=== PATIENT | female | born 1980 | race Caucasian/White ===

== ENCOUNTER 2020-05-10 09:45 | Outpatient (CLI) | payer BC ==
[2020-05-10 12:22] LABS: #Eosinphils 0.1 10x3/uL (0.0-0.5); #Monocytes 0.6 10x3/uL (0.0-1.1); #Neutrophils 3.3 10x3/uL (1.5-8.4); %Basophils 0.7 % (0.0-2.0); %Lymphocytes 31.6 % (18.0-47.0); %Monocytes 9.8 % (0.0-10.0); %Neutrophils 55.6 % (40.0-75.0); Bilirubin Neg (Negative); Blood, Urine 250 (Negative); Clarity Cloudy (Clear); Glucose, Urine (Dipstick) Normal (Negative); Hemoglobin 14.5 g/dL (12.0-15.5); Ketone, Urine Negative (Negative); Leukocyte 25 (Negative); Mean Corpuscular HGB CONC 33.3 g/dL (32.0-36.0); Mean Corpuscular Hemoglobin 30.8 pg (27.0-33.0); Mean Corpuscular Volume 92.6 fl (81.6-98.3); Mean Platelet Volume 11.6 fl (7.4-10.4); Nitrite Negative (Negative); Platelet Count 223 10x3/uL (150-450); Protein, Urine (Dipstick) 30 mg/dl (Neg-Trace); RBC Distribution Width 11.9 % (11.5-14.5); Red Blood Cell (RBC) Count 4.71 10x6/uL (3.90-5.03); Specific Gravity, Urine 1.015 (1.002-1.036); Urobilinogen Normal mg/dL (Less than 2); White Blood Cell (WBC) Count 5.9 10x3/uL (3.5-10.5)
[2020-05-10 13:15] LABS: RBC/HPF Greater than 50 HPF (0-3); Squamous Epithelial 0-3 HPF (0-3)
[2020-05-10 13:16] LABS: Bacteria/HPF Rare-Few HPF (None Seen)
[2020-05-10 20:03] LABS: SARS-CoV-2 PCR by NAA Not Detected (NotDetected)
== END 2020-05-10 09:46 | disposition home or self-care (01) ==
LOC: CSHLAB 09:45
PROVIDERS: ATTEND Obstetrics & Gynecology
DX: Z01.812 Encounter for preprocedural laboratory examination (principal); Z20.822 Contact with and (suspected) exposure to COVID-19; N93.9 Abnormal uterine and vaginal bleeding, unspecified; N92.0 Excessive and frequent menstruation with regular cycle; D64.9 Anemia, unspecified
CPT/HCPCS: 81001; 84702; 85025; 87635; U0003; U0005

== ENCOUNTER 2020-05-19 19:38 | Inpatient (IN) | payer BC ==
[2020-05-19] MEDS ORDERED: diphenhydrAMINE 25 MG CAP PO PRN (20:48)
[2020-05-19] MEDS ORDERED: HYDROcodone/Acetaminophen 5/325 mg Tablet PO PRN (20:52)
[2020-05-19] MEDS ORDERED: Morphine 4 MG/ML VIAL SLOW IVP SCH (21:00)
[2020-05-19] MEDS ORDERED: Piperacillin/Tazobactam 4.5 GM in Sodium Chloride 0.9% 100 ML IVPB SCH (21:15)
[2020-05-19] MEDS ORDERED: Ketorolac Tromethamine 30 MG/ML VIAL IVP SCH ×2 (21:15→23:59)
[2020-05-19] MEDS ORDERED: Ondansetron PF 4 MG/2 ML Vial IVP SCH (21:15)
[2020-05-19] MEDS ORDERED: Piperacillin/Tazobactam 4.5 GM VIAL ONE (21:46)
[2020-05-19] MEDS: Sodium Chloride 0.9% 1,000 ML IV SCH (21:55)
[2020-05-19] MEDS ORDERED: metroNIDAZOLE 0.75% 70 GM TUBE VAG SCH (22:45)
[2020-05-19] MEDS: Zolpidem Tartrate 5 MG TAB PO PRN (23:37)
[2020-05-19] MEDS ORDERED: Piperacillin/Tazobactam 3.375 GM in Sodium Chloride 0.9% 100 ML IVPB SCH (23:59)
[2020-05-20] MEDS ORDERED: Piperacillin/Tazobactam 3.375 GM in Sodium Chloride 0.9% 100 ML IVPB SCH (01:00)
[2020-05-20] MEDS ORDERED: Piperacillin/Tazobactam 4.5 GM VIAL ONE (01:30)
[2020-05-20 02:31] VITALS: BMI 36.6
[2020-05-20] MEDS: Ketorolac Tromethamine 30 MG/ML VIAL IVP SCH ×4 (03:11→22:16)
[2020-05-20] MEDS: Ondansetron PF 4 MG/2 ML Vial IVP PRN ×4 (03:12→17:35)
[2020-05-20] MEDS: HYDROcodone/Acetaminophen 5/325 mg Tablet PO PRN ×2 (04:10→14:47)
[2020-05-20] MEDS: Sodium Chloride 0.9% 1,000 ML IV SCH ×3 (05:31→22:17)
[2020-05-20 06:24] LABS: Hemoglobin 11.6 g/dL (12.0-15.5); Mean Corpuscular HGB CONC 33.8 g/dL (32.0-36.0); Mean Corpuscular Hemoglobin 30.9 pg (27.0-33.0); Mean Corpuscular Volume 91.2 fl (81.6-98.3); Platelet Count 177 10x3/uL (150-450); RBC Distribution Width 12.2 % (11.5-14.5); Red Blood Cell (RBC) Count 3.76 10x6/uL (3.90-5.03); White Blood Cell (WBC) Count 9.8 10x3/uL (3.5-10.5)
[2020-05-20] MEDS: Piperacillin/Tazobactam 3.375 GM in Sodium Chloride 0.9% 100 ML IVPB SCH ×2 (09:08→17:34)
[2020-05-20] MEDS: metroNIDAZOLE 0.75% 70 GM TUBE VAG SCH (09:08)
[2020-05-20] MEDS ORDERED: Mineral Oil ENEMA PR SCH (21:00)
[2020-05-20] MEDS: Promethazine HCl 25 MG/ML VIAL IM PRN (21:21)
[2020-05-21] MEDS: Piperacillin/Tazobactam 3.375 GM in Sodium Chloride 0.9% 100 ML IVPB SCH ×3 (00:36→16:55)
[2020-05-21] MEDS: Sodium Chloride 0.9% 1,000 ML IV SCH ×3 (00:37→17:00)
[2020-05-21] MEDS: Ibuprofen 600 MG TAB PO PRN ×2 (03:20→17:31)
[2020-05-21] MEDS: metroNIDAZOLE 0.75% 70 GM TUBE VAG SCH (08:33)
[2020-05-21] MEDS: Polyethylene Glycol 3350 17 GM Packet PO SCH (08:33)
[2020-05-21] MEDS ORDERED: Acetaminophen 325 MG TAB PO PRN (17:45)
[2020-05-22] MEDS: Piperacillin/Tazobactam 3.375 GM in Sodium Chloride 0.9% 100 ML IVPB SCH ×3 (02:25→17:15)
[2020-05-22] MEDS: Sodium Chloride 0.9% 1,000 ML IV SCH ×3 (02:32→22:06)
[2020-05-22] MEDS: Zolpidem Tartrate 5 MG TAB PO PRN ×2 (02:45→21:56)
[2020-05-22] MEDS: Promethazine HCl 25 MG/ML VIAL IM PRN (07:55)
[2020-05-22] MEDS: Polyethylene Glycol 3350 17 GM Packet PO SCH (09:19)
[2020-05-22] MEDS ORDERED: Promethazine 25 MG TAB PO PRN (13:18)
[2020-05-22] MEDS ORDERED: Ondansetron ODT 4 MG TAB PO PRN (13:19)
[2020-05-22] MEDS: Metoclopramide HCl 10 MG TAB PO SCH ×2 (16:52→20:56)
[2020-05-22] MEDS: metroNIDAZOLE 0.75% 70 GM TUBE VAG SCH (20:07)
[2020-05-22] MEDS ORDERED: metroNIDAZOLE 0.75% 70 GM TUBE VAG SCH (21:00)
[2020-05-23] MEDS: Piperacillin/Tazobactam 3.375 GM in Sodium Chloride 0.9% 100 ML IVPB SCH ×2 (00:50→09:13)
[2020-05-23] MEDS: Sodium Chloride 0.9% 1,000 ML IV SCH (06:41)
[2020-05-23] MEDS: Metoclopramide HCl 10 MG TAB PO SCH ×2 (07:39→11:09)
[2020-05-23] MEDS: Polyethylene Glycol 3350 17 GM Packet PO SCH (09:18)
[2020-05-23 11:46] VITALS: BP 111/68; TEMP 98.5
== END 2020-05-23 14:10 | disposition home or self-care (01) | DRG 863 ==
LOC: UNDOADMIN 19:38 → CSHPP 19:38 → UNDOADMIN 05-22 10:06 → CSHPP 05-22 10:06
PROVIDERS: ADMIT Obstetrics & Gynecology; ATTEND Obstetrics & Gynecology
DX: T81.49XA Infection following a procedure, other surgical site, initial encounter (principal); N73.2 Unspecified parametritis and pelvic cellulitis; G89.18 Other acute postprocedural pain; Z20.822 Contact with and (suspected) exposure to COVID-19; F31.9 Bipolar disorder, unspecified; F90.9 Attention-deficit hyperactivity disorder, unspecified type; Z90.710 Acquired absence of both cervix and uterus; Z98.51 Tubal ligation status; Z87.891 Personal history of nicotine dependence; Z79.899 Other long term (current) drug therapy
CPT/HCPCS: 36416; 85027; J1885; J2270; J2405; J2543; J2550; J3490

== ENCOUNTER 2021-03-31 16:04 | Outpatient (CLI) | payer BC | END 2021-03-31 16:05 | disposition home or self-care (01) | LOC: CSHRAD 16:04 | PROVIDERS: ATTEND Family Medicine Sports Medicine | DX: M79.644 Pain in right finger(s) (principal); S62.521A Displaced fracture of distal phalanx of right thumb, initial encounter for closed fracture ==

== ENCOUNTER 2022-01-23 13:10 | Emergency (ER) | payer BC ==
[2022-01-23 13:43] LABS: Bilirubin 3+ (Negative); Blood, Urine 250 (Negative); Clarity Cloudy (Clear); Glucose, Urine (Dipstick) Normal (Negative); Ketone, Urine Negative (Negative); Leukocyte 100 (Negative); Nitrite Positive (Negative); Protein, Urine (Dipstick) 100 mg/dl (Neg-Trace); Specific Gravity, Urine 1.025 (1.005-1.030)
[2022-01-23 13:50] LABS: Bacteria/HPF Rare-Few HPF (None Seen); RBC/HPF Greater than 50 HPF (0-3)
[2022-01-23] MEDS ORDERED: cefTRIAXone\\ROCEPHIN 500 MG VIAL ONE (14:41)
[2022-01-23] MEDS ORDERED: Ketorolac Tromethamine 30 MG/ML VIAL ONE (14:41)
[2022-01-23] MEDS ORDERED: Lidocaine 1% PF 5 ML VIAL ONE (14:41)
== END 2022-01-23 15:18 | disposition home or self-care (01) ==
LOC: CSHERS 13:10
DX: N30.01 Acute cystitis with hematuria (principal); Z87.891 Personal history of nicotine dependence
CPT/HCPCS: 81003; 81015; 87077; 87086; 87186; 96372; 99283; J0696; J1885